=== PATIENT | female | born 1955 | race Two or more races ===

== ENCOUNTER 2019-06-27 08:50 | Day surgery (SDC) | payer OTHER | END 2019-06-27 17:30 | disposition home or self-care (01) | LOC: AMB-ENDOS 08:50 | DX: K64.8 Other hemorrhoids (principal); Z12.11 Encounter for screening for malignant neoplasm of colon ==

== ENCOUNTER 2020-04-14 07:00 | Outpatient (CLI) | payer OTHER | END 2020-04-14 10:00 | disposition home or self-care (01) | LOC: SONOGRAMA 07:00 | PROVIDERS: ATTEND Pathology Anatomic Pathology & Clinical Pathology | DX: E04.2 Nontoxic multinodular goiter (principal) ==

== ENCOUNTER → 2023-09-19 | Day surgery (SDC) | payer OTHER | END | disposition home or self-care (01) | LOC: ADM 09-12 13:15 → CIR.AMB 06:00 | PROVIDERS: ATTEND Colon & Rectal Surgery | DX: K63.5 Polyp of colon (principal); K57.30 Diverticulosis of large intestine without perforation or abscess without bleeding; K64.8 Other hemorrhoids; Z20.822 Contact with and (suspected) exposure to COVID-19; R10.32 Left lower quadrant pain ==